=== PATIENT | male | born 1995 | race Caucasian/White ===

== ENCOUNTER 2021-06-30 17:09 | Emergency (ER) | payer OTHER, SELFPAY ==
[2021-06-30 17:10] VITALS: BP 137/96; PULSE 88; RESP 18; TEMP 36.9; O2SAT 98
--- NOTE | 2021-06-30 17:15 | PC.NURSE ---
Pt noted to no longer be eloped.
--- NOTE | 2021-06-30 17:25 | PC.NURSE ---
Napoleon GARCIA notified pt eloped and had admitted to drinking.
== END 2021-06-30 17:15 | disposition left against medical advice (07) ==
PROVIDERS: Emergency Provider Emergency Medicine
DX: Z04.9 Encounter for examination and observation for unspecified reason (principal); Z53.8 Procedure and treatment not carried out for other reasons
CPT/HCPCS: 99199

== ENCOUNTER 2022-05-17 00:20 | Emergency (ER) | payer SELFPAY ==
[2022-05-17 00:23] VITALS: BP 159/96; PULSE 136; RESP 20; TEMP 36.5; O2SAT 98
--- NOTE | 2022-05-17 00:27 | ED.OVERDOSE ---
HPI - Overdose General Chief Complaint: Overdose Stated Complaint: OVERDOSE Source: patient History of Present Illness HPI Narrative: this is a 19-year-old gentleman that apparently overdosed on fentanyl while they were smoking marijuana at at home with his sister a and apparently the sister carries intranasal Narcan and noticed that her brother 1 unresponsive, gave him a dose of intranasal Narcan and brought him to the emergency department. The patient during my examination is awake alert talking and currently having no problem and is unwilling to have any IVs or any blood draws or any urine test performed. Currently there is no headache no blurry vision no chest pain no shortness of breath. MD complaint: accidental overdose Onset (ago): hour(s) Timing confirmed by: family member Review of Systems Review of Systems: All systems reviewed & are unremarkable except as noted in HPI and below PMFSH Past Medical History Medical History Occasional drug abuser Exam Const: General: healthy appearing and no acute distress HENMT: Head: normal to inspection Face and sinus: normal facial exam Mouth: Yes Normal oral and palatal mucosa present Eyes: Conjunctivae: conjunctivae normal Pupils: Equal, round and reactive pupils present Direct Ophthalmoscopy: no photophobia Neck: Neck: normal visual inspection, no lymphadenopathy and no meningeal signs Chest: Chest palpation & inspection: normal inspection of the chest Resp: Effort & Inspection: normal respiratory effort Auscultation: clear to auscultation bilaterally Cardio: Rate: regular rate Rhythm: regular rhythm GI: GI Palp: Yes Soft to palpation Auscultation: normal bowel sounds Skin: General skin exam: normal color Rashes: no rashes Wounds: no wounds Neuro: General: patient oriented x3 Extrem: General: normal to inspection Psych: Mental Status: mental status grossly normal Affect: normal affect Course Course Emergency Course: patient alert oriented and wanting to leave against medical advice. Critical Care Time Critical Care Time Critical Care Time: No Discharge Plan Discharge Clinical Impression: Drug overdose Patient Disposition: Left Against Medical Advice Condition: Stable Instructions: Adult Overdose (ED) Follow-up/Referrals: UNKNOWN,DOCTOR [Primary Care Provider] - Time of Disposition: 00:32
== END 2022-05-17 00:37 | disposition left against medical advice (07) ==
LOC: CHSED 00:33
PROVIDERS: Emergency Provider Emergency Medicine
DX: T50.901A Poisoning by unspecified drugs, medicaments and biological substances, accidental (unintentional), initial encounter (principal)
CPT/HCPCS: 99281